=== PATIENT | male | born 2000 ===

== ENCOUNTER 2023-04-21 19:46 | Observation (INO) | payer SELFPAY ==
[~2023-04-21] VITALS: Ht 165 cm; Wt 62.0 kg
--- NOTE | 2023-04-21 21:11 | ED General ---
General Chief Complaint: Exposure Stated Complaint: SUN|HEAT EXPOSURE Nursing Triage Note: c/o generalized weakness, vomitting x5, cramping since noon today. pt reports getting too hot at work. Source of Information: Patient Exam Limitations: No Limitations History of Present Illness Date Seen by Provider: Apr 21, 2023 Time Seen by Provider: 21:10 Initial Comments Patient is a 22-year-old male who presents the ED with friends for evaluation for heat exhaustion. 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 His Chief Dispatcher Service at bedside-Darrel. Patient started feeling lightheaded and dizzy around 12 PM. Started having body pains and vomited 5 times. Started having cramping in his upper and lower extremities. He states the cramping seems to be improving. Does report a headache at this time with mild lightheadedness. Reports generalized abdominal cramping. Has been drinking water and coke without much improvement. Denies history of heart disease, asthma, diabetes. Patient states he has been urinating without any pain or discomfort. Denies taking medication for his symptoms. Patient denies confusion, chest pain, cough, shortness of breath, visual changes, unilateral muscle weakness or sensory changes. Allergies and Home Medications Allergies Coded Allergies: No Known Drug Allergies (Unverified , 04/21/23) Patient Home Medication List Home Medication List Reviewed: Yes Review of Systems Review of Systems Constitutional: chills; No diaphoresis; malaise, weakness EENTM: No ear pain, No blurred vision, No double vision Respiratory: No cough, No dyspnea on exertion Cardiovascular: No chest pain Gastrointestinal: abdominal pain; No diarrhea; nausea, vomiting Genitourinary: No decreased output, No discharge Musculoskeletal: No back pain, No joint pain; muscle pain, other (cramping) Skin: No change in color All Other Systems Reviewed Negative Unless Noted: Yes Past Kbnpgnd-Yqfaft-Gcnlij Hx Patient Social History Tobacco Use?: No Substance use?: No Alcohol Use?: Yes Alcohol Frequency: Once in a while Pt feels they are or have been: No Immunizations Up To Date First/Initial COVID19 Vaccinat: na Past Medical History Surgery/Hospitalization HX: denies Physical Exam Vital Signs Vital Signs - First Documented 04/21/23 19:54 Temp 37.6 Pulse 105 Resp 18 B/P (MAP) 138/81 (100) Pulse Ox 98 O2 Delivery Room Air Capillary Refill : Less Than 3 Seconds Height, Weight, BMI Height: '" Weight: lbs. oz. kg; 24.00 BMI Method: General Appearance: No Apparent Distress, WD/WN Eyes: Bilateral Eye Normal Inspection, Bilateral Eye PERRL, Bilateral Eye EOMI HEENT: PERRL/EOMI, TMs Normal, Normal ENT Inspection, Pharynx Normal Neck: Full Range of Motion, Normal Inspection, Non Tender, Supple Respiratory: Chest Non Tender, Lungs Clear, Normal Breath Sounds, No Accessory Muscle Use, No Respiratory Distress Cardiovascular: Regular Rate, Rhythm, No Edema, No Gallop, No JVD Gastrointestinal: Normal Bowel Sounds, No Organomegaly, No Pulsatile Mass Back: Normal Inspection, No CVA Tenderness Extremity: Normal Capillary Refill, Normal Inspection, Normal Range of Motion, Non Tender Neurologic/Psychiatric: Alert, Oriented x3, No Motor/Sensory Deficits, Normal Mood/Affect Skin: Normal Color, Warm/Dry Progress/Results/Core Measures Suspected Sepsis SIRS Temperature: Pulse: 105 Respiratory Rate: 18 Laboratory Tests 04/21/23 20:10: White Blood Count 20.1H Blood Pressure 138 /81 Mean: 100 Laboratory Tests 04/21/23 20:10: Creatinine 2.35H, Platelet Count 252, Total Bilirubin 0.8 Results/Orders Lab Results Laboratory Tests Test 04/21/23 20:10 04/21/23 21:21 Range/Units White Blood Count 20.1 H 4.3-11.0 10^3/uL Red Blood Count 6.02 H 4.30-5.52 10^6/uL Hemoglobin 18.1 H 13.3-17.7 g/dL Hematocrit 50 40-54 % Mean Corpuscular Volume 84 80-99 fL Mean Corpuscular Hemoglobin 30 25-34 pg Mean Corpuscular Hemoglobin Concent 36 32-36 g/dL Red Cell Distribution Width 12.9 10.0-14.5 % Platelet Count 252 130-400 10^3/uL Mean Platelet Volume 9.2 9.0-12.2 fL Immature Granulocyte % (Auto) 1 % Neutrophils (%) (Auto) 82 H 42-75 % Lymphocytes (%) (Auto) 8 L 12-44 % Monocytes (%) (Auto) 8 0-12 % Eosinophils (%) (Auto) 0 0-10 % Basophils (%) (Auto) 0 0-10 % Neutrophils # (Auto) 16.5 H 1.8-7.8 10^3/uL Lymphocytes # (Auto) 1.6 1.0-4.0 10^3/uL Monocytes # (Auto) 1.7 H 0.0-1.0 10^3/uL Eosinophils # (Auto) 0.0 0.0-0.3 10^3/uL Basophils # (Auto) 0.1 0.0-0.1 10^3/uL Immature Granulocyte # (Auto) 0.1 0.0-0.1 10^3/uL Neutrophils % (Manual) 74 % Lymphocytes % (Manual) 5 % Monocytes % (Manual) 5 % Band Neutrophils 16 % Platelet Estimate ADEQUATE Blood Morphology Comment NORMAL Sodium Level 138 135-145 MMOL/L Potassium Level 4.2 3.6-5.0 MMOL/L Chloride Level 94 L 98-107 MMOL/L Carbon Dioxide Level 25 21-32 MMOL/L Anion Gap 19 H 5-14 MMOL/L Blood Urea Nitrogen 15 7-18 MG/DL Creatinine 2.35 H 0.60-1.30 MG/DL Estimat Glomerular Filtration Rate 39 BUN/Creatinine Ratio 6 Glucose Level 124 H 70-105 MG/DL Calcium Level 12.2 H 8.5-10.1 MG/DL Corrected Calcium 8.5-10.1 MG/DL Magnesium Level 1.6 1.6-2.4 MG/DL Total Bilirubin 0.8 0.1-1.0 MG/DL Aspartate Amino Transf (AST/SGOT) 25 5-34 U/L Alanine Aminotransferase (ALT/SGPT) 28 0-55 U/L Alkaline Phosphatase 105 40-136 U/L Total Creatine Kinase 340 H 30-200 U/L Total Protein 10.2 H 6.4-8.2 GM/DL Albumin 5.9 H 3.2-4.5 GM/DL Lipase 16 8-78 U/L Urine Color YELLOW Urine Clarity CLEAR Urine pH 6.5 5-9 Urine Specific [place] 1.015 L 1.016-1.022 Urine Protein 1+ H NEGATIVE Urine Glucose (UA) NEGATIVE NEGATIVE Urine Ketones TRACE H NEGATIVE Urine Nitrite NEGATIVE NEGATIVE Urine Bilirubin 1+ H NEGATIVE Urine Urobilinogen 1.0 < = 1.0 MG/DL Urine Leukocyte Esterase 1+ H NEGATIVE Urine RBC (Auto) NEGATIVE NEGATIVE Urine RBC 0-2 /HPF Urine WBC 10-25 H /HPF Urine Squamous Epithelial Cells 0-2 /HPF Urine Crystals PRESENT H /LPF Urine Amorphous Sediment FEW CHUCKY URATES H /LPF Urine Bacteria FEW H /HPF Urine Casts PRESENT /LPF Urine Hyaline Casts 25-50 H /LPF Urine Mucus MODERATE H /LPF Urine Culture Indicated YES My Orders Orders - ALEKS DUQUE Ns Iv 1000 Ml (Sodium Chloride 0.9%) (04/21/23 21:15) Ns Iv 1000 Ml (Sodium Chloride 0.9%) (04/21/23 21:15) Cbc With Automated Diff (04/21/23 21:05) Comprehensive Metabolic Panel (04/21/23 21:05) Creatine Kinase (04/21/23 21:05) Lipase (04/21/23 21:05) Magnesium (04/21/23 21:05) Ua Culture If Indicated (04/21/23 21:05) Ondansetron Injection (Zofran Injectio (04/21/23 21:15) Ed Iv/Invasive Line Start (04/21/23 21:09) Manual Differential (04/21/23 20:10) Urinalysis (04/21/23 21:21) Ns Iv 1000 Ml (Sodium Chloride 0.9%) (04/21/23 21:59) Urine Culture (04/21/23 21:21) Medications Given in ED Vital Signs/I&O 04/21/23 04/21/23 19:54 22:15 Temp 37.6 37.0 Pulse 105 95 Resp 18 16 B/P (MAP) 138/81 (100) 111/76 Pulse Ox 98 98 O2 Delivery Room Air Room Air 04/22/23 00:00 Intake Total 2000 ml Balance 2000 ml Capillary Refill : Less Than 3 Seconds Blood Pressure Mean: 100 Departure Communication (PCP) Patient is a 22-year-old male who presents to ED with 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 Around 12:00 patient started becoming symptomatic with mentioned symptoms. Patient states he vomited 5 times. Patient on arrival tachycardic. No evidence of confusion. No evidence of tremoring. Refused rectal temp. Did agree to tympanic which was 37.6. Low-grade. According to his warehouse supervisor 3rd shift patient has been at his normal baseline. Currently complaining o f cramping. No specific abdominal pain tenderness. no vomiting during his stay. Patient was started on a liter of fluid generalized lab work was CPK urinalysis. Patient received 2 L of fluid initially after his initial lab work. CBC showed white blood count of 20. Normal sodium and potassium. Chloride 94. Acute kidney injury with a creatinine 2.35 GFR 39. CPK showed 395. Urine positive for ketones, leukocytes, white blood cells. Did receive dose of Rocephin prophylactically. Patient states he has been urinating today. Denies of any specific urinary symptoms or concern for STD. Denies of any drug use or alcohol use. Patient is speaking. 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 Patient temperature continue to improve. Still continue feeling weak and fatigued. Patient did receive 3 L of fluid. Patient was discussed with Dr. Cabello hospitalist on-call. Agreed to accept patient. We will provide Zofran as needed. Tylenol for headache. Concern for heat exhaustion with secondary acute kidney injury, mild rhabdo. Recheck of his chemistry in the morning. Patient was not hypotensive. Stable vital signs. Contact patient's warehouse supervisor 3rd shift Darrel at [phone] Impression Primary Impression: OLLIE (acute kidney injury) Additional Impressions: Rhabdomyolysis Heat exhaustion Disposition: ADMITTED INPATIENT Condition: Stable Admissions Decision to Admit Reason: Admit from ER (General) Decision to Admit/Date: Apr 21, 2023 Time/Decision to Admit Time: 21:58 ALEKS DUQUE Apr 21, 2023 21:11
[2023-04-21] MEDS ORDERED: NS IV 1000 ML 1,000 ML IV SCH ×2 (21:15)
[2023-04-21] MEDS ORDERED: ONDANSETRON 4 MG/2 ML (SDV) Z0FRAN IVP ONE (21:15)
[2023-04-21 21:25] LABS: BASOPHILS # (AUTO) 0.1 10^3/uL (0.0-0.1); BASOPHILS % (AUTO) 0 % (0-10); EOSINOPHILS % (AUTO) 0 % (0-10); HEMATOCRIT 50 % (40-54); HEMOGLOBIN 18.1 g/dL (13.3-17.7); LYMPHOCYTES # (AUTO) 1.6 10^3/uL (1.0-4.0); LYMPHOCYTES % (AUTO) 8 % (12-44); MEAN CORPUSCULAR HEMOGLOBIN 30 pg (25-34); MEAN CORPUSCULAR HGB CONC 36 g/dL (32-36); MEAN CORPUSCULAR VOLUME 84 fL (80-99); MEAN PLATELET VOLUME 9.2 fL (9.0-12.2); MONOCYTES # (AUTO) 1.7 10^3/uL (0.0-1.0); MONOCYTES % (AUTO) 8 % (0-12); NEUTROPHILS # (AUTO) 16.5 10^3/uL (1.8-7.8); NEUTROPHILS % (AUTO) 82 % (42-75); PLATELET COUNT 252 10^3/uL (130-400); WHITE BLOOD COUNT 20.1 10^3/uL (4.3-11.0)
[2023-04-21 21:36] LABS: ALANINE AMINOTRANSFERASE 28 U/L (0-55); CREATINE KINASE 340 U/L (30-200); LIPASE 16 U/L (8-78); MAGNESIUM 1.6 MG/DL (1.6-2.4)
[2023-04-21 21:40] LABS: ALBUMIN 5.9 GM/DL (3.2-4.5)
[2023-04-21 21:41] LABS: ALKALINE PHOSPHATASE 105 U/L (40-136); BILIRUBIN,TOTAL 0.8 MG/DL (0.1-1.0); BUN/CREATININE RATIO 6; CALCIUM 12.2 MG/DL (8.5-10.1); CARBON DIOXIDE 25 MMOL/L (21-32); CHLORIDE 94 MMOL/L (98-107); CREATININE SERUM 2.35 MG/DL (0.60-1.30); GFR ESTIMATED 39; GLUCOSE 124 MG/DL (70-105); POTASSIUM 4.2 MMOL/L (3.6-5.0); SODIUM 138 MMOL/L (135-145); TOTAL PROTEIN 10.2 GM/DL (6.4-8.2)
[2023-04-21 21:58] LABS: CLARITY,URINE CLEAR; COLOR,URINE YELLOW; GLUCOSE, URINE (UA) NEGATIVE (NEGATIVE); KETONES,URINE TRACE (NEGATIVE); LEUKOCYTE ESTERASE ,URINE 1+ (NEGATIVE); NITRITE,URINE NEGATIVE (NEGATIVE); PH,URINE 6.5 (5-9); PROTEIN,URINE 1+ (NEGATIVE)
[2023-04-21] MEDS ORDERED: NS IV 1000 ML 1,000 ML IV STA (21:59)
[2023-04-21 22:07] LABS: BILIRUBIN,URINE 1+ (NEGATIVE)
[2023-04-21 22:09] LABS: BACTERIA,URINE FEW /HPF; RBC,URINE 0-2 /HPF; SQUAMOUS EPITHELIAL CELL,UR 0-2 /HPF
[2023-04-21 22:10] LABS: AMORPHOUS SEDIMENT,UR FEW AMOR URATES /LPF; HYALINE CASTS, URINE 25-50 /LPF
[2023-04-21] MEDS ORDERED: cefTRIAXone IV/IM 1,000 MG in NS (IVPB) 50 ML 50 ML IV ONE (22:30)
[2023-04-21 22:32] VITALS: BP 132/61
[2023-04-21 22:47] LABS: BAND NEUTROPHILS 16 %; LYMPHOCYTES % (MANUAL) 5 %; MONOCYTES % (MANUAL) 5 %; NEUTROPHILS % (MANUAL) 74 %
[2023-04-21 22:48] LABS: PLATELET ESTIMATE ADEQUATE; RBC MORPH NORMAL
[2023-04-21] MEDS ORDERED: ACETAMINOPHEN 325 MG TABLET PO PRN (23:00)
[2023-04-21] MEDS ORDERED: ONDANSETRON 4 MG/2 ML (SDV) Z0FRAN IV PRN (23:00)
[2023-04-21] MEDS: NS IV 1000 ML 1,000 ML IV SCH (23:01)
[2023-04-22 00:56] VITALS: BP 112/63
[2023-04-22 04:12] VITALS: BP 100/58
[2023-04-22] MEDS: NS IV 1000 ML 1,000 ML IV SCH ×2 (06:10→12:30)
[2023-04-22 06:32] LABS: POTASSIUM 3.8 MMOL/L (3.6-5.0)
[2023-04-22 06:34] LABS: CALCIUM 8.5 MG/DL (8.5-10.1)
[2023-04-22 06:38] LABS: CREATININE SERUM 0.93 MG/DL (0.60-1.30)
[2023-04-22] MEDS ORDERED: CATHETER FLUSH 10 ML SYR IV PRN (06:45)
[2023-04-22 08:00] VITALS: BP 111/52
[2023-04-22 11:41] VITALS: BP 112/59
--- NOTE | 2023-04-22 11:46 | Discharge Inst-Simple/Standard ---
Discharge Inst-Standard Patient Instructions/Follow Up Plan of Care/Instructions/FU: Please continue to take your medications as written. Please follow up with your primary care doctor to follow up this hospital stay. Activity as Tolerated: Yes Discharge Diet: No Restrictions (make sure to push fluids (water and electrolyte replacement drinks when in the heat)) Return to The Hospital For: Chest pain, muscle aches, shortness of breath, fever, weakness, if you feel you are getting worse. THOR WARNER MD Apr 22, 2023 11:46
[2023-04-22] MEDS ORDERED: CATHETER FLUSH 10 ML SYR IV SCH (14:00)
--- NOTE | 2023-04-22 14:30 | Short Stay Summary-Hospitalist ---
NERI SOLIS 04/22/23 1430: History of Present Illness HPI/Chief Complaint Justus is a 22 yo M with an unremarkable medical history who presented to the ED on 04/21 with complaints of headache, dizziness, body cramps and five episodes vomiting. 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 He denied prior instances of similar symptoms. At the ED, he was found to have an elevated CPK at 395, an elevated creatinine of 2.35, leukocytosis of 20k, and urine positive for ketones, and tachycardia. He was afebrile at 37.6 C and without tremors or signs of mental instability. Sodium and potassium were within normal ranges. He was provided odnansetron 4 mg, acetaminophen 650 mg, and 3L of isotonic fluid then admitted to [facility] for management of OLLIE due to rhabdomyolysis incited by heat exhaustion and dehydration. Within continued IVF his creatinine normalized to 0.93 by 0600 hrs 04/22. Later that morning, he reported complete resolution of his symptoms and stated he was ready to go home. 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 Patients Allergies have been reviewed. Allergies Allergies Coded Allergies No Known Drug Allergies (Unverified04/21/23) Past Medical/Social/Family Hx Patient Social History Employed/Student: employed Tobacco Use?: No Use of E-Cig and/or Vaping dev: No Substance use?: No Alcohol Use?: No Alcohol Frequency: Once in a while Pt stated abuse/neglect: No Immunizations Up To Date First/Initial COVID19 Vaccinat: na Tetanus Booster (TDap): Less Than 5 Years Current Status Advance Directives: No Communicates: Verbally Primary Language: Bhutanese Preferred Spoken Language: Bhutanese Is interpretation needed?: Patient declined Implanted or Applied Medical D: None Review of Systems Constitutional: No dizziness, No weakness Gastrointestinal: No abdominal pain, No nausea, No vomiting Musculoskeletal: No muscle pain, No muscle cramps, No muscle weakness Physical Exam Physical Exam Vital Signs Vital Signs - First Documented 04/21/23 19:54 Temp 37.6 Pulse 105 Resp 18 B/P (MAP) 138/81 (100) Pulse Ox 98 O2 Delivery Room Air Capillary Refill : Less Than 3 Seconds Height, Weight, BMI Height: '" Weight: lbs. oz. kg; 22.77 BMI Method: General Appearance: No Apparent Distress, WD/WN Eyes: Bilateral Eye Normal Inspection, Bilateral Eye PERRL, Bilateral Eye EOMI HEENT: PERRL/EOMI, TMs Normal, Normal ENT Inspection, Pharynx Normal Neck: Full Range of Motion, Normal Inspection, Non Tender, Supple Respiratory: Chest Non Tender, Lungs Clear, Normal Breath Sounds, No Accessory Muscle Use, No Respiratory Distress Cardiovascular: Regular Rate, Rhythm, No Edema, No Gallop, No JVD Gastrointestinal: Normal Bowel Sounds, No Organomegaly, No Pulsatile Mass Back: Normal Inspection, No CVA Tenderness Extremity: Normal Capillary Refill, Normal Inspection, Normal Range of Motion, Non Tender Neurologic/Psychiatric: Alert, Oriented x3, No Motor/Sensory Deficits, Normal Mood/Affect Skin: Normal Color, Warm/Dry Results Results/Procedures Labs Laboratory Tests 04/21/23 20:10 04/22/23 06:00 Patient resulted labs reviewed. Short Stay Diagnosis Discharge Diagnosis-Short Stay Admission Diagnosis Dehydration Heat exhaustion Rhabdomyolysis Acute kidney Injury Final Discharge Diagnosis Acute kidney injury Conclusion Plan Patient advised to adequately hydrate and spend time in the shade to the best of his ability. THOR WARNER MD 04/23/23 1533: Supervisory-Addendum Brief Verification & Attestation Participated in pt care: history, MDM, physical Personally performed: exam, history, MDM, supervision of care Care discussed with: Medical Student Procedures: n/a Results interpretation: Verified all documentation Verification and Attestation of Medical Student E/M Service A medical student performed and documented this service in my presence. I reviewed and verified all information documented by the medical student and made modifications to such information, when appropriate. I personally performed the physical exam and medical decision making. Thor Warner Apr 23, 2023,15:33 NERI SOLIS Apr 22, 2023 14:30 THOR WARNER MD Apr 23, 2023 15:33
== END 2023-04-22 14:14 | disposition home or self-care (01) ==
LOC: ER 19:50 → 4TH 22:17 → UNDOADMOB 22:17 → 4TH 22:35 → UNDODISOB 04-22 14:14
PROVIDERS: ADMIT Internal Medicine; ATTEND Internal Medicine
DX: N17.9 Acute kidney failure, unspecified (principal); E86.0 Dehydration; M62.82 Rhabdomyolysis; X30.XXXA Exposure to excessive natural heat, initial encounter; Z28.310 Unvaccinated for COVID-19
CPT/HCPCS: 80048; 80053; 81000; 82550; 83690; 83735; 85007; 85027; 87088; 96375; 99284; G0378; 36415; 87077